=== PATIENT | male | born 1945 | race Caucasian/White ===

== ENCOUNTER 2019-11-21 10:08 | Outpatient (CLI) | payer MEDICARE, SELFPAY ==
[2019-11-21 11:13] LABS: Blood Urea Nitrogen 27 mg/dL (9-20); Calcium 9.3 mg/dL (8.4-10.2); Carbon Dioxide 30 mmol/L (22-30); Chloride 101 mmol/L (98-107); Estimated Glomerular Filt Rate 46; Glucose 109 mg/dL (75-110); Potassium 4.5 mmol/L (3.4-5.0); Sodium 141 mmol/L (137-145)
== END 2019-11-21 10:09 | disposition home or self-care (01) ==
LOC: ANHLAB 10:19
PROVIDERS: PCP Internal Medicine; Visit Provider Internal Medicine
DX: N18.3 Chronic kidney disease, stage 3 (moderate) (principal)
CPT/HCPCS: 36415; 80048

== ENCOUNTER 2020-02-24 13:15 | Outpatient (CLI) | payer MEDICARE, SELFPAY ==
[2020-02-24 14:07] LABS: Add Urine Microscopic? NO; Appearance Urine Clear (Clear); Bilirubin Urine Negative (Negative); Blood Urine Negative (Negative); Color Urine Straw (Yellow); Glucose Urine UA Negative (Negative); Ketones Urine Negative (Negative); Leukocyte Esterase Ur Negative LEU/UL (NEGATIVE); Nitrate Urine Negative (Negative); Protein Urine Negative (Negative); Specific Grav Ur 1.015 (1.001-1.035); Urobilinogen Urine Negative mg/dL (<2.0)
[2020-02-24 14:22] LABS: Alanine Aminotransferase 14 U/L (4-50); Albumin Level 4.3 g/dL (3.5-5.1); Alkaline Phosphatase 53 U/L (38-126); Aspartate Amino Transferase 27 U/L (17-59); Bilirubin,Total 0.5 mg/dL (0.2-1.3); Blood Urea Nitrogen 26 mg/dL (9-20); Carbon Dioxide 26 mmol/L (22-30); Chloride 104 mmol/L (98-107); Estimated Glomerular Filt Rate 54; Glucose 92 mg/dL (75-110); Potassium 4.3 mmol/L (3.4-5.0); Sodium 136 mmol/L (137-145)
== END 2020-02-24 13:16 | disposition home or self-care (01) ==
PROVIDERS: PCP Internal Medicine; Visit Provider Internal Medicine
DX: R74.8 Abnormal levels of other serum enzymes (principal)
CPT/HCPCS: 36415; 80053; 81003

== ENCOUNTER → 2020-12-21 10:17 | Outpatient (REF) | payer MEDICARE, SELFPAY | LOC: ANHLAB 10:17 | PROVIDERS: PCP Internal Medicine; Visit Provider Nurse Practitioner | DX: C44.629 Squamous cell carcinoma of skin of left upper limb, including shoulder (principal) | CPT/HCPCS: 88305 ==

== ENCOUNTER → 2021-02-01 09:49 | Outpatient (REF) | payer MEDICARE, SELFPAY | LOC: ANHLAB 09:49 | PROVIDERS: PCP Internal Medicine; Visit Provider Nurse Practitioner | DX: C44.629 Squamous cell carcinoma of skin of left upper limb, including shoulder (principal) | CPT/HCPCS: 88305 ==

== ENCOUNTER 2021-11-15 10:26 | Outpatient (CLI) | payer MEDICARE, SELFPAY ==
[2021-11-15 11:03] LABS: Basophils Absolute Auto 0.1 K/mm3 (0.0-0.1); Basophils Percent Auto 0.9 % (0.2-1.2); Eosinophils Absolute Auto 0.1 K/mm3 (0-0.3); Eosinophils Percent Auto 2.3 % (0-4.4); Hematocrit 41.3 % (42.0-52.0); Hemoglobin 13.7 g/dL (14.0-18.0); Immature Granulocyte Absolute 0.01 K/mm3 (0.00-0.031); Immature Granulocyte Percent A 0.2 % (0-0.5); Immature Platelet Fraction Pct 2.5 % (0.9-11.2); Lymphocytes Absolute Auto 0.83 K/mm3 (0.9-3.2); Lymphocytes Percent Auto 15.7 % (18.3-44.2); Mean Corpuscular HGB Conc 33.2 g/dl (32-36); Mean Corpuscular Hemoglobin 30.6 pg (26-34); Mean Corpuscular Volume 92.4 fl (80-100); Mean Platelet Volume 9.6 fl (7.4-10.4); Monocytes Absolute Auto 0.5 K/mm3 (0.1-0.6); Monocytes Percent Auto 9.6 % (2.6-8.5); Neutrophils Absolute Auto 3.8 K/mm3 (1.3-6.7); Neutrophils Percent Auto 71.3 % (45.5-73.1); Platelet Count Result 131 k/mm3 (150-375); Red Blood Count 4.47 M/mm3 (4.6-6.20); Red Cell Distribution Width 12.6 % (11.5-14.5); White Blood Count 5.3 K/mm3 (4.5-10.0)
[2021-11-15 11:32] LABS: Vitamin D 25 Hydroxy 60.4 ng/mL
[2021-11-15 11:45] LABS: Alanine Aminotransferase 23 U/L (4-50); Albumin Level 4.2 g/dL (3.5-5.1); Alkaline Phosphatase 55 U/L (38-126); Anion Gap 5 mmol/L (8-16); Aspartate Amino Transferase 32 U/L (17-59); Bilirubin,Total 0.7 mg/dL (0.2-1.3); Blood Urea Nitrogen 22 mg/dL (9-20); Calcium 9.1 mg/dL (8.4-10.2); Carbon Dioxide 29 mmol/L (22-30); Chloride 105 mmol/L (98-107); Cholesterol 141 mg/dL (0-200); Estimated Glomerular Filt Rate 46; Glucose 104 mg/dL (65-110); HDL Direct 54 mg/dL; Potassium 3.9 mmol/L (3.4-5.0); Sodium 139 mmol/L (137-145); Triglycerides 95 mg/dL (<150)
[2021-11-15 11:57] LABS: LDL Cholesterol Direct 67 mg/dL
[2021-11-15 12:17] LABS: Prostate Specific Antigen 2.8 ng/mL (< OR = 4.0); Thyroid Stimulating Hormone 0.896 uIU/mL (0.465-4.680)
== END 2021-11-15 10:27 | disposition home or self-care (01) ==
LOC: ANHLAB 10:28
PROVIDERS: PCP Internal Medicine; Visit Provider Internal Medicine
DX: Z12.5 Encounter for screening for malignant neoplasm of prostate (principal); E78.00 Pure hypercholesterolemia, unspecified; E55.9 Vitamin D deficiency, unspecified; R53.83 Other fatigue; G00-G99 Diseases of the nervous system
CPT/HCPCS: 36415; 80053; 80061; 82306; 82607; 82746; 84153; 84443; 85025; 85055; G0103

== ENCOUNTER 2022-04-25 09:22 | Outpatient (CLI) | payer MEDICARE, SELFPAY ==
[2022-04-25 09:50] LABS: Alanine Aminotransferase 12 U/L (6-50); Albumin Level 3.9 g/dL (3.5-5.1); Alkaline Phosphatase 70 U/L (38-126); Anion Gap 5 mmol/L (8-16); Aspartate Amino Transferase 21 U/L (17-59); Bilirubin,Total 0.6 mg/dL (0.2-1.3); Blood Urea Nitrogen 29 mg/dL (9-20); Calcium 8.6 mg/dL (8.4-10.2); Carbon Dioxide 29 mmol/L (22-30); Chloride 104 mmol/L (98-107); Estimated Glomerular Filt Rate 46; Glucose 115 mg/dL (65-110); Sodium 138 mmol/L (137-145)
== END 2022-04-25 09:23 | disposition home or self-care (01) ==
LOC: ANHLAB 09:25
PROVIDERS: PCP Internal Medicine; Visit Provider Internal Medicine
DX: N18.30 Chronic kidney disease, stage 3 unspecified (principal)
CPT/HCPCS: 36415; 80053

== ENCOUNTER 2022-06-16 09:47 | Outpatient (CLI) | payer MEDICARE, SELFPAY ==
--- NOTE | ~2022-06-16 | MR_ITS ---
EXAMINATION: MR lumbar spine wo con DATE: 06/16/2022 10:22 INDICATION: Back pain. TECHNIQUE: Magnetic resonance imaging (MRI) of the lumbar spine was performed without intravenous con trast. Sequences included sagittal T2-weighted FSE, sagittal T2-weighted FS FSE, sagittal T1-weighted FSE, and axial T2-weighted FSE. COMPARISON: None FINDINGS: There is 6 degrees levocurvature of lumbar spine. There is a chronic compression fracture o f T12 with 2/5 loss of height. There is 3 mm retrolisthesis of L1 on L2 and 3 mm anterolisthesis of L 2 on L3. There is severely decreased disc height at L1-L2, moderately decreased disc height at L2-L3, mildly decreased disc height at L3-L4, moderately decreased disc height at L4-L5, and severely decre ased disc height at L5-S1 with endplate remodeling. The distal spinal cord signal intensity is normal . The conus medullaris is at L1. The following disc levels are specifically discussed: L1-L2: The disc is bulging and has an annular fissure. There is mild bilateral facet joint osteoarthr itis. There is mild bilateral neural foraminal stenosis. There is mild central canal stenosis. L2-L3: The disc is bulging and has an annular fissure. There is severe right and moderate left facet joint osteoarthritis. There is mild bilateral neural foraminal stenosis. There is mild central canal stenosis. L3-L4: The disc is bulging and has an annular fissure. There is moderate bilateral facet joint osteoa rthritis. There is mild bilateral neural foraminal stenosis. There is mild central canal stenosis. L4-L5: The disc is bulging and has an annular fissure. There is moderate bilateral facet joint osteoa rthritis. There is moderate bilateral neural foraminal stenosis. There is mild central canal stenosis . L5-S1: The disc is bulging and has an annular fissure. There is severe bilateral facet joint osteoart hritis. There is mild right and moderate left neural foraminal stenosis. There is mild central canal stenosis. IMPRESSION: 1. Severe lumbar spondylosis. Reviewed, dictated and finalized at location A.
== END 2022-06-16 09:48 | disposition home or self-care (01) ==
LOC: ANHIMG 09:49
PROVIDERS: PCP Internal Medicine; Visit Provider Internal Medicine
DX: M54.9 Dorsalgia, unspecified (principal); M47.816 Spondylosis without myelopathy or radiculopathy, lumbar region
CPT/HCPCS: 72148

== ENCOUNTER 2022-09-04 08:30 | Outpatient (RCR) | payer MEDICARE, SELFPAY ==
--- NOTE | 2022-08-10 10:23 | OTOPEVAL1 ---
Assessment and note entered by Cassia Mehta OT Evaluation Information Assessment Status Evaluation Diagnosis R hand weakness Subjective Information Patient reports has lost strength in R hand prior to and after R TSA 3 months prior. Patient reports difficulty with opening jars, buttoning shirt, any gripping/grasping tasks. Patient reports prior to shoulder replacement not allowed to lift anything over 10lbs. Reported Pain Level Pain Score 0: Self Report Assessment OT Clinical Summary Raf is a 76 year old R hand dominant male who presents to Outpatient OT with complaints of R hand weakness. Patient reports difficulty with gripping/grasping tasks with R hand, buttoning shirt, opening jars. 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 Patient would benefit from skilled OT for instruction of HEP materials, R UE strengthening, fine motor coordination tasks in order to optimize participation with functional and daily tasks. Plan of Care Interventions Therapeutic Exercise,Therapeutic Activities OT Services Indicated Yes These treatments will address the objective and functional deficits as defined above. The patient will be advanced safely and appropriately in order for the patient to progress towards his/her prior level of function. Additional exercises will be introduced and as well as a comprehensive home exercise program upon discharge, if needed, ?to ensure carryover of functional gains achieved in the clinic. This treatment plan has been reviewed and agreement upon by the patient.
--- NOTE | 2022-09-04 09:15 | OTOPDC ---
Assessment and note entered by Cassia Mehta OTR/[facility] Evaluation Information Assessment Status Discharge Diagnosis R hand weakness Subjective Information Patient presents to OT for re-evaluation following a of lost strength in R hand prior to and after R TSA 3 months prior. Patient reports since beginning therapy has increased strength and fine motor coordination including being able to button shirt easier, gripping/grasping tasks are easier to complete. Reported Pain Level Pain Score 0: Self Report Assessment OT Clinical Summary Raf is a 76 year old R hand dominant male who presents to outpatient OT for re-evaluation following R hand weakness. Patient has attended therapy for x4 session. Patient reports R hand feels much stronger and it is easier to complete daily and functional tasks. 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 Plan is to discharge patient today from skilled OT with goals met and patient independent with all HEP materials. Patient is agreeable to plan. Plan of Care OT Services Indicated No
== END 2022-09-04 12:47 | disposition home or self-care (01) ==
LOC: ANHOT 08:30
PROVIDERS: PCP Internal Medicine; Visit Provider Nurse Practitioner Gerontology
DX: R29.898 Other symptoms and signs involving the musculoskeletal system (principal)
CPT/HCPCS: 97110; 97165

== ENCOUNTER 2022-11-28 10:40 | Outpatient (CLI) | payer MEDICARE, SELFPAY ==
[2022-11-28 11:01] LABS: Basophils Percent Auto 0.5 % (0.2-1.2); Eosinophils Absolute Auto 0.1 K/mm3 (0-0.3); Eosinophils Percent Auto 1.6 % (0-4.4); Hematocrit 44.9 % (42.0-52.0); Hemoglobin 14.7 g/dL (14.0-18.0); Immature Granulocyte Absolute 0.03 K/mm3 (0.00-0.031); Immature Granulocyte Percent A 0.4 % (0-0.5); Lymphocytes Percent Auto 11.9 % (18.3-44.2); Mean Corpuscular HGB Conc 32.7 g/dl (32-36); Mean Corpuscular Hemoglobin 29.8 pg (26-34); Mean Corpuscular Volume 90.9 fl (80-100); Mean Platelet Volume 9.1 fl (7.4-10.4); Monocytes Absolute Auto 0.7 K/mm3 (0.1-0.6); Neutrophils Absolute Auto 5.8 K/mm3 (1.3-6.7); Neutrophils Percent Auto 76.6 % (45.5-73.1); Platelet Count Result 198 k/mm3 (150-375); Red Blood Count 4.94 M/mm3 (4.6-6.20); Red Cell Distribution Width 13.1 % (11.5-14.5); White Blood Count 7.6 K/mm3 (4.5-10.0)
[2022-11-28 11:15] LABS: Alanine Aminotransferase 22 U/L (6-50); Albumin Level 4.5 g/dL (3.5-5.1); Alkaline Phosphatase 87 U/L (38-126); Anion Gap 5 mmol/L (8-16); Aspartate Amino Transferase 22 U/L (17-59); Bilirubin,Total 0.6 mg/dL (0.2-1.3); Blood Urea Nitrogen 31 mg/dL (9-20); Carbon Dioxide 32 mmol/L (22-30); Chloride 102 mmol/L (98-107); Estimated Glomerular Filt Rate 46; Glucose 107 mg/dL (65-110); Potassium 4.5 mmol/L (3.4-5.0); Sodium 139 mmol/L (137-145)
[2022-11-28 11:29] LABS: Vitamin D 25 Hydroxy 69.7 ng/mL
[2022-11-28 11:44] LABS: Prostate Specific Antigen 3.3 ng/mL (< OR = 4.0)
[2022-11-28 12:19] LABS: Folic Acid 13.2 ng/mL (2.76->20)
== END 2022-11-28 10:41 | disposition home or self-care (01) ==
LOC: ANHLAB 10:42
PROVIDERS: PCP Internal Medicine; Visit Provider Internal Medicine
DX: E55.9 Vitamin D deficiency, unspecified (principal); E78.00 Pure hypercholesterolemia, unspecified; R53.83 Other fatigue; Z12.5 Encounter for screening for malignant neoplasm of prostate
CPT/HCPCS: 36415; 80053; 82306; 82607; 82746; 84153; 84443; 85025; G0103

== ENCOUNTER 2023-05-03 08:33 | Outpatient (CLI) | payer MEDICARE, SELFPAY ==
[2023-05-03 09:06] LABS: Basophils Absolute Auto 0.1 K/mm3 (0.0-0.1); Basophils Percent Auto 0.9 % (0.2-1.2); Eosinophils Absolute Auto 0.1 K/mm3 (0-0.3); Eosinophils Percent Auto 2.6 % (0-4.4); Hematocrit 45.9 % (42.0-52.0); Hemoglobin 14.8 g/dL (14.0-18.0); Immature Granulocyte Absolute 0.01 K/mm3 (0.00-0.031); Immature Granulocyte Percent A 0.2 % (0-0.5); Immature Platelet Fraction Pct 2.1 % (0.9-11.2); Lymphocytes Absolute Auto 0.88 K/mm3 (0.9-3.2); Lymphocytes Percent Auto 16.3 % (18.3-44.2); Mean Corpuscular HGB Conc 32.2 g/dl (32-36); Mean Corpuscular Hemoglobin 29.7 pg (26-34); Mean Platelet Volume 9.7 fl (7.4-10.4); Monocytes Absolute Auto 0.4 K/mm3 (0.1-0.6); Neutrophils Absolute Auto 3.9 K/mm3 (1.3-6.7); Platelet Count Result 152 k/mm3 (150-375); Red Blood Count 4.99 M/mm3 (4.6-6.20); Red Cell Distribution Width 13.2 % (11.5-14.5); White Blood Count 5.4 K/mm3 (4.5-10.0)
[2023-05-03 09:53] LABS: Vitamin D 25 Hydroxy 82.5 ng/mL
[2023-05-03 16:29] LABS: Alanine Aminotransferase 25 U/L (6-50); Albumin Level 4.3 g/dL (3.5-5.1); Alkaline Phosphatase 52 U/L (38-126); Anion Gap 9 mmol/L (8-16); Aspartate Amino Transferase 38 U/L (17-59); Bilirubin,Total 0.7 mg/dL (0.2-1.3); Blood Urea Nitrogen 31 mg/dL (9-20); Calcium 9.2 mg/dL (8.4-10.2); Carbon Dioxide 29 mmol/L (22-30); Chloride 102 mmol/L (98-107); Cholesterol 167 mg/dL (0-200); Estimated Glomerular Filt Rate 42; Glucose 114 mg/dL (65-110); HDL Direct 61 mg/dL; Potassium 4.6 mmol/L (3.4-5.0); Sodium 140 mmol/L (137-145); Triglycerides 95 mg/dL (<150)
[2023-05-03 16:40] LABS: LDL Cholesterol Direct 77 mg/dL
[2023-05-08 09:40] LABS: Metanephrine, Total Urine 393 mcg/g cr (149-603); Metanephrine, Urine 134 mcg/g cr (21-153); Normetanephrine, Urine 259 mcg/g cr (108-524)
== END 2023-05-03 08:34 | disposition home or self-care (01) ==
PROVIDERS: PCP Internal Medicine; Referring Provider Podiatrist Foot & Ankle Surgery; Visit Provider Internal Medicine
DX: E55.9 Vitamin D deficiency, unspecified (principal); E78.5 Hyperlipidemia, unspecified; I10 Essential (primary) hypertension; R53.83 Other fatigue
CPT/HCPCS: 36415; 80053; 80061; 82306; 82570; 83835; 84443; 85025; 85055

== ENCOUNTER 2023-10-10 10:22 | Outpatient (CLI) | payer MEDICARE, SELFPAY ==
[2023-10-10 11:15] LABS: Alanine Aminotransferase 16 U/L (6-50); Aspartate Amino Transferase 30 U/L (17-59)
== END 2023-10-10 10:23 | disposition home or self-care (01) ==
LOC: ANHLAB 10:25
PROVIDERS: PCP Internal Medicine; Visit Provider Podiatrist Foot & Ankle Surgery
DX: B35.1 Tinea unguium (principal)
CPT/HCPCS: 36415; 84450; 84460

== ENCOUNTER 2023-12-03 08:43 | Outpatient (CLI) | payer MEDICARE, SELFPAY ==
[2023-12-03 09:11] LABS: Basophils Absolute Auto 0.1 K/mm3 (0.0-0.1); Basophils Percent Auto 0.8 % (0.2-1.2); Eosinophils Absolute Auto 0.2 K/mm3 (0-0.3); Eosinophils Percent Auto 2.5 % (0-4.4); Hematocrit 48.4 % (42.0-52.0); Hemoglobin 15.6 g/dL (14.0-18.0); Immature Granulocyte Absolute 0.02 K/mm3 (0.00-0.031); Immature Granulocyte Percent A 0.3 % (0-0.5); Lymphocytes Absolute Auto 0.82 K/mm3 (0.9-3.2); Lymphocytes Percent Auto 13.8 % (18.3-44.2); Mean Corpuscular HGB Conc 32.2 g/dl (32-36); Mean Corpuscular Hemoglobin 29.5 pg (26-34); Mean Corpuscular Volume 91.5 fl (80-100); Mean Platelet Volume 9.3 fl (7.4-10.4); Monocytes Absolute Auto 0.4 K/mm3 (0.1-0.6); Monocytes Percent Auto 7.4 % (2.6-8.5); Neutrophils Absolute Auto 4.5 K/mm3 (1.3-6.7); Neutrophils Percent Auto 75.2 % (45.5-73.1); Platelet Count Result 148 k/mm3 (150-375); Red Blood Count 5.29 M/mm3 (4.6-6.20); Red Cell Distribution Width 13.2 % (11.5-14.5)
[2023-12-03 09:23] LABS: Alanine Aminotransferase 14 U/L (6-50); Albumin Level 4.5 g/dL (3.5-5.1); Alkaline Phosphatase 58 U/L (38-126); Anion Gap 5 mmol/L (8-16); Aspartate Amino Transferase 25 U/L (17-59); Bilirubin,Total 0.7 mg/dL (0.2-1.3); Blood Urea Nitrogen 32 mg/dL (9-20); Calcium 9.4 mg/dL (8.4-10.2); Carbon Dioxide 33 mmol/L (22-30); Chloride 102 mmol/L (98-107); Cholesterol 152 mg/dL (0-200); Estimated Glomerular Filt Rate 33; Glucose 116 mg/dL (65-110); HDL Direct 62 mg/dL; Potassium 4.8 mmol/L (3.4-5.0); Sodium 140 mmol/L (137-145); Triglycerides 82 mg/dL (<150)
[2023-12-03 09:35] LABS: LDL Cholesterol Direct 76 mg/dL
[2023-12-03 09:52] LABS: Prostate Specific Antigen 3.1 ng/mL (< OR = 4.0)
== END 2023-12-03 08:44 | disposition home or self-care (01) ==
LOC: ANHLAB 08:48
PROVIDERS: PCP Internal Medicine; Visit Provider Internal Medicine
DX: Z12.5 Encounter for screening for malignant neoplasm of prostate (principal); I12.9 Hypertensive chronic kidney disease with stage 1 through stage 4 chronic kidney disease, or unspecified chronic kidney disease; N18.30 Chronic kidney disease, stage 3 unspecified; E78.5 Hyperlipidemia, unspecified; R73.9 Hyperglycemia, unspecified; E55.9 Vitamin D deficiency, unspecified
CPT/HCPCS: 36415; 80053; 80061; 83036; 84153; 84443; 85025; G0103

== ENCOUNTER 2024-04-08 09:38 | Inpatient (IN) | payer MEDICARE, SELFPAY ==
[2024-04-08] VITALS (39 sets, daily range): BP systolic 84–159; BP diastolic 57–133; PULSE 59–79; RESP 11–34; TEMP 36.2–36.8; O2SAT 97–100; BMI 19.3
--- NOTE | ~2024-04-08 | CT_ITS ---
EXAMINATION: CT abdomen pelvis wo con DATE: 04/08/2024 11:23 INDICATION: Abdominal pain. Diarrhea. Acute kidney injury. TECHNIQUE: Computed tomography (CT) of the abdomen and pelvis was performed without intravenous contr ast. Automated exposure control and iterative reconstruction technique were employed. The dose-length product was 256.13 mGy-cm. COMPARISON: CT abdomen 03/25/2018 FINDINGS: The visualized portions of the lung bases demonstrate mild atelectasis. No pleural effusion . The heart size is normal. There are coronary artery calcifications. No pericardial effusion. There are likely changes of fundoplication of the stomach. There is a moderate-sized sliding hiatal hernia. The liver, gallbladder, spleen, pancreas, adrenal glands, and right kidney are normal. There are cys ts in left kidney measuring up to 14 mm. There is an umbilical hernia containing fat and trace ascite s. There is a left inguinal hernia containing fat. There is diverticulosis of the colon without evide nce of diverticulitis. The appendix is not visualized. There is calcified atherosclerosis of the aort a and many of the other arteries. There are no pathologically enlarged lymph nodes. There is trace pe lvic ascites. There are two small supraumbilical ventral hernias containing fat. There is chronic ant erior wedging of T11-L1 vertebral bodies. There is severe lumbar spondylosis. IMPRESSION: 1. Umbilical hernia, supraumbilical ventral hernias, and left inguinal hernia containing fat. 2. Fundoplication of the stomach with the wrap above the diaphragm. Reviewed, dictated and finalized at location A. IMPRESSION: 1. Umbilical hernia, supraumbilical ventral hernias, and left inguinal hernia c ontaining fat. 2. Fundoplication of the stomach with the wrap above the diaphragm.
--- NOTE | ~2024-04-08 | US_ITS ---
US renal BI Ordering provider: Tanisha Coffman History: . Acute kidney injury . Comparison: None. Technique: Ultrasound bilateral kidneys. Findings: RIGHT KIDNEY: Measures 9.9x 4.8x 4.6 cm in length which is normal in size. No renal cysts. No renal m ass or visualized echogenic stones. Otherwise, normal echotexture and contour. No hydronephrosis. Nor mal renal cortical thickness. LEFT KIDNEY: Measures 9.8x 5.1x 4.6 cm in length which is normal in size. No renal cysts. No renal ma ss or visualized echogenic stones. Otherwise, normal echotexture and contour. Mild dilatation of the pelvis. Normal renal cortical thickness. BLADDER: 63 mL.. Ureteral jets were not seen bilaterally. IMPRESSION: Mild dilatation of the left renal pelvis. Otherwise, Normal study. Reviewed, dictated and finalized at location A.
[2024-04-08 10:20] LABS: Basophils Absolute Auto 0.1 K/mm3 (0.0-0.1); Basophils Percent Auto 0.4 % (0.2-1.2); Eosinophils Absolute Auto 0.1 K/mm3 (0-0.3); Eosinophils Percent Auto 0.6 % (0-4.4); Hematocrit 50.7 % (42.0-52.0); Hemoglobin 16.9 g/dL (14.0-18.0); Immature Granulocyte Absolute 0.06 K/mm3 (0.00-0.031); Immature Granulocyte Percent A 0.4 % (0-0.5); Lymphocytes Absolute Auto 0.71 K/mm3 (0.9-3.2); Mean Corpuscular HGB Conc 33.3 g/dl (32-36); Mean Corpuscular Hemoglobin 30.1 pg (26-34); Mean Corpuscular Volume 90.2 fl (80-100); Mean Platelet Volume 10.2 fl (7.4-10.4); Monocytes Absolute Auto 1.1 K/mm3 (0.1-0.6); Monocytes Percent Auto 7.5 % (2.6-8.5); Neutrophils Absolute Auto 12.2 K/mm3 (1.3-6.7); Neutrophils Percent Auto 86.1 % (45.5-73.1); Platelet Count Result 228 k/mm3 (150-375); Red Blood Count 5.62 M/mm3 (4.6-6.20); Red Cell Distribution Width 13.3 % (11.5-14.5); White Blood Count 14.2 K/mm3 (4.5-10.0)
[2024-04-08 10:32] LABS: Alanine Aminotransferase 22 U/L (6-50); Albumin Level 5.5 g/dL (3.5-5.1); Alkaline Phosphatase 66 U/L (38-126); Anion Gap 17 mmol/L (4-12); Aspartate Amino Transferase 25 U/L (17-59); Bilirubin,Total 0.8 mg/dL (0.2-1.3); Blood Urea Nitrogen 60 mg/dL (9-20); Calcium 10.1 mg/dL (8.4-10.2); Carbon Dioxide 14 mmol/L (22-30); Chloride 108 mmol/L (98-107); Estimated CRCL calculation 16 ml/min; Estimated Glomerular Filt Rate 18; Glucose 170 mg/dL (65-110); Lipase 132 U/L (23-300); Potassium 4.5 mmol/L (3.4-5.0); Sodium 139 mmol/L (137-145)
[2024-04-08] MEDS: ONDANSETRON INJ 4 MG/2 ML VIAL IV PUSH (11:14)
[2024-04-08] MEDS: SODIUM CHLORIDE 0.9% IV 1,000 ML 999 ML IV CONT (11:14)
--- NOTE | 2024-04-08 11:18 | PC.NURSE ---
Report given to Gypsy DYE, all questions answered
--- NOTE | 2024-04-08 11:32 | ED.NAVMDI ---
HPI - Nausea/Vomiting/Diarrhea General Chief complaint: Nausea/Vomiting/Diarrhea <ANA ROSA Kay Last Filed: 04/08/24 16:30> Stated complaint: diarrhea <ANA ROSA Kay Last Filed: 04/08/24 16:30> Time Seen by Provider: 04/08/24 10:15 <ANA ROSA Kay Last Filed: 04/08/24 16:30> Source: patient <ANA ROSA Kay Last Filed: 04/08/24 16:30> Mode of arrival: ambulatory <ANA ROSA Kay Last Filed: 04/08/24 16:30> Limitations: no limitations <ANA ROSA Kay Last Filed: 04/08/24 16:30> History of Present Illness HPI Narrative: This is a 78-year-old male that presents to the emergency department for abdominal pain and diarrhea. Ongoing since yesterday. Reports feeling generally weak. Also had some nausea vomiting. Reports the stool is watery. He has not been on any antibiotics recently. Denies fevers, hematochezia, or melena. <ANA ROSA Kay Last Filed: 04/08/24 16:30> Related Data Home medications: Home Medications Medication Instructions Recorded Confirmed aspirin 81 mg tablet,delayed 81 mg PO DAILY 11/21/19 12/05/23 release (Adult Low Dose Aspirin) simvastatin 20 mg tablet 20 mg PO DAILY 11/21/19 12/05/23 terbinafine HCl 250 mg tablet 250 mg PO DAILY 05/30/23 12/05/23 <ANA ROSA Kay Last Filed: 04/08/24 16:30> Allergies/Adverse reactions: Allergies Allergy/AdvReac Type Severity Reaction Status Date / Time No Known Allergies Allergy Verified 04/08/24 10:08 <ANA ROSA Kay Last Filed: 04/08/24 16:30> Review of Systems Review of Systems: CONSTITUTIONAL: Denies fever GASTROINTESTINAL: Reports abdominal pain, nausea, vomiting, and diarrhea. GENITOURINARY: Denies dysuria <ANA ROSA Kay Last Filed: 04/08/24 16:30> All systems reviewed & are unremarkable except as noted in HPI and below <Odalis Lemus PA-C - Last Filed: 04/08/24 16:30> [facility] Past Medical History Medical History: Medical History Benign prostatic hyperplasia Chronic kidney disease, stage 3 Coronary artery disease Essential hypertension Gastroesophageal reflux disease Hyperlipidemia Prediabetes <Odalis Lemus PA-C - Last Filed: 04/08/24 16:30> Surgical History Surgical History: Surgical History History of cardiac catheterization History of coronary artery stent placement History of hernia repair History of Bettye fundoplication History of reverse total replacement of right shoulder joint <Odalis Lemus PA-C - Last Filed: 04/08/24 16:30> Family History Family History: Family History Mother Family history of malignant neoplasm of breast in first degree relative, Onset Age: 91 Patient's mother is Father Patient's father is Other Family history of Parkinson's disease Family history of malignant neoplasm <Odalis Lemus PA-C - Last Filed: 04/08/24 16:30> Social History Social History: Social History (Updated 04/08/24 @ 17:33 by Tanisha Coffman PA-C) Social History: Surrogate medical decision maker: Brittani Sparrow, spouse. Code status: Full code. Smoking status: Former smoker Second hand tobacco smoke exposure: No Alcohol intake: current Drinks per week: 1 Substance use: never Do You Feel Safe in your Home?: Yes Lack of Transportation: No Lack of Food: Never True Current Housing: Decline to Answer Concerned About Future Housing: Decline to Answer Difficulty Paying Gas/Electric Bills: Decline to Answer Difficulty Paying for Meds: Decline to Answer Currently Unemployed: Decline to Answer Education: Decline to Answer Difficulty w/ Childcare or Family Care: Decline to Answer Spiritual care concerns: No
[2024-04-08 14:08] LABS: Appearance Urine Cloudy (Clear); Bacteria Urine None Seen /hpf; Bilirubin Urine Negative (Negative); Blood Urine Negative (Negative); Calcium Oxalate Crystals Urine Present /hpf; Color Urine Dark Yellow (Yellow); Glucose Urine UA Negative (Negative); Ketones Urine Trace mg/dL (Negative); Leukocyte Esterase Ur Negative LEU/UL (Negative); Mucus Urine Present /lpf; Need Manual Microscopic Reviewed; Nitrate Urine Negative (Negative); Non Pathogenic Casts >20; Protein Urine 2+ mg/dL (Negative); RBC Urine 0-2 /hpf (0-2); Specific Grav Ur 1.022 (1.001-1.035); Squamous Epithelial Cell Urine None Seen /hpf (Few); WBC Urine 0-5 /hpf (0-3)
[2024-04-08 14:10] LABS: Add Urine Microscopic? YES
[2024-04-08] MEDS: SODIUM CHLORIDE 0.9% IV 500 ML 999 ML IV CONT (14:38)
--- NOTE | 2024-04-08 15:52 | PM.IMHP ---
H&P: HPI History of Present Illness Date/Time: 04/08/24 16:30 Chief Complaint: Nausea, vomiting, diarrhea. Narrative: This is a very pleasant 78-year-old male with history of Bettye fundoplication, multiple ventral hernias, gastroesophageal reflux disease, hypertension, hyperlipidemia, benign prostatic hyperplasia, chronic kidney disease stage 3, and prediabetes who presented to the emergency department via private vehicle for evaluation of weakness. Yesterday morning at about 08:00 he developed a pressure-like discomfort in the lower abdomen followed by watery diarrhea admixed with mucus. The pressure-like discomfort does improve after having a bowel movement. He has had too numerous to count episodes of diarrhea and reports being up and down all night with the same. At about 03:30 he started to feel extremely nauseated and he reports having 1 episode of nonbloody and nonbilious emesis. He continues to have the diarrhea however and is feeling progressively weak. He denies fever, chills, sweats, chest pain, shortness of breath, epigastric pain, current abdominal pain, hematemesis, melena, and hematochezia. He also denies sick contacts, recent travel, and recent antibiotic use In the ED: Blood pressure was 84/59 on arrival. He has been afebrile. Labs are significant for a WBC count of 14.2, hemoglobin 16.9, sodium 139, potassium 4.5, chloride 108, carbon dioxide 14, anion gap 17, BUN 60, creatinine 3.40, glucose 170, total protein 9.0, albumin 5.5. CT of the abdomen and pelvis showed umbilical, supraumbilical, and left inguinal hernias containing fat and fundal location of the stomach with wrap above the diaphragm. He received a 1500 mL normal saline bolus and is being admitted in this setting for further treatment. With further questioning, he admits that he has no knowledge of having chronic kidney disease. He has noticed a decrease in urine output today which he attributes to dehydration. He has been on lisinopril for quite some time and more recently was started on amlodipine due to persistently elevated blood pressures. Review of Systems Review of Systems: 12 systems were reviewed and are negative except for as per HPI. [facility] Past Medical History Medical History Benign prostatic hyperplasia Chronic kidney disease, stage 3 Coronary artery disease Essential hypertension Gastroesophageal reflux disease Hyperlipidemia Prediabetes Surgical History Surgical History History of cardiac catheterization History of coronary artery stent placement History of hernia repair History of Bettye fundoplication History of reverse total replacement of right shoulder joint Family History Family History Mother Family history of malignant neoplasm of breast in first degree relative, Onset Age: 91 Patient's mother is Father Patient's father is Other Family history of Parkinson's disease Family history of malignant neoplasm Social History Social History (Updated 04/08/24 @ 17:33 by Tanisha Coffman PA-C) Social History: Surrogate medical decision maker: Brittani Sparrow, spouse. Code status: Full code. Smoking status: Former smoker Second hand tobacco smoke exposure: No Alcohol intake: current Drinks per week: 1 Substance use: never Do You Feel Safe in your Home?: Yes Lack of Transportation: No Lack of Food: Never True Current Housing: Decline to Answer Concerned About Future Housing: Decline to Answer Difficulty Paying Gas/Electric Bills: Decline to Answer Difficulty Paying for Meds: Decline to Answer Currently Unemployed: Decline to Answer Education: Decline to Answer Difficulty w/ Childcare or Family Care: Decline to Answer Spiritual care concerns: No Meds Home Medications and Allergies
--- NOTE | 2024-04-08 16:03 | ADMGEN ---
This patient, Raf Sparrow, was admitted to 2 Medical Room 256-. Patient/family oriented to hospital policies and general routines including ID bracelet, bed and alarms, visiting hours, pain management, procedures, bathroom and other care routines, personal items, smoking policy, room service/diet, and visiting hours. Information on how to activate the Rapid Response Team has been discussed. Patient/Family are encouraged to report perceived risks to care and to ask questions if they do not understand what they are told or what they should do.
[2024-04-08 16:24] LABS: Fractional Inspired Oxygen 21 %; HCO3 VBG 19.1 mEq/l (24.0-30.0); PCO2 VBG 46.5 mmHg (42.0-48.0)
[2024-04-08 16:26] LABS: PO2 VBG < 27.0 mmHg (35.0-45.0); pH VBG 7.231 (7.300-7.400)
[2024-04-08 16:38] LABS: Anion Gap 13 mmol/L (4-12); Blood Urea Nitrogen 62 mg/dL (9-20); Calcium 9.1 mg/dL (8.4-10.2); Carbon Dioxide 15 mmol/L (22-30); Chloride 113 mmol/L (98-107); Estimated CRCL calculation 16 ml/min; Estimated Glomerular Filt Rate 20; Glucose 117 mg/dL (65-110); Potassium 5.1 mmol/L (3.4-5.0); Sodium 141 mmol/L (137-145)
[2024-04-08] MEDS: LACTATED RINGERS 1,000 ML 100 ML IV CONT (18:21)
--- NOTE | 2024-04-08 18:42 | PC.NURSE ---
Pt a poor historian. Pt unsure of home medications. This nurse pulled as many as possible from recent pharmacy information. Pts will be here with a list soon.
[2024-04-08 23:39] LABS: Anion Gap 10 mmol/L (4-12); Blood Urea Nitrogen 59 mg/dL (9-20); Carbon Dioxide 19 mmol/L (22-30); Chloride 111 mmol/L (98-107); Estimated CRCL calculation 17 ml/min; Estimated Glomerular Filt Rate 21; Glucose 159 mg/dL (65-110); Potassium 3.9 mmol/L (3.4-5.0); Sodium 140 mmol/L (137-145)
[2024-04-09] VITALS (13 sets, daily range): BP systolic 127–155; BP diastolic 65–84; PULSE 57–77; RESP 16–20; TEMP 36.5–37.2; O2SAT 97–100
[2024-04-09] MEDS: LACTATED RINGERS 1,000 ML 100 ML IV CONT ×2 (04:21→14:24)
[2024-04-09 04:46] LABS: Hematocrit 42.5 % (42.0-52.0); Immature Platelet Fraction Pct 2.1 % (0.9-11.2); Mean Corpuscular HGB Conc 32.9 g/dl (32-36); Mean Corpuscular Hemoglobin 30.5 pg (26-34); Mean Corpuscular Volume 92.6 fl (80-100); Mean Platelet Volume 9.7 fl (7.4-10.4); Platelet Count Result 132 k/mm3 (150-375); Red Blood Count 4.59 M/mm3 (4.6-6.20); Red Cell Distribution Width 13.4 % (11.5-14.5); White Blood Count 7.1 K/mm3 (4.5-10.0)
[2024-04-09 04:57] LABS: Anion Gap 10 mmol/L (4-12); Blood Urea Nitrogen 56 mg/dL (9-20); CRP 0.7 mg/dL (<1.0); Calcium 8.8 mg/dL (8.4-10.2); Carbon Dioxide 19 mmol/L (22-30); Chloride 110 mmol/L (98-107); Creatine Kinase 196 U/L (55-170); Estimated CRCL calculation 19 ml/min; Estimated Glomerular Filt Rate 24; Glucose 115 mg/dL (65-110); Magnesium 2.2 mg/dL (1.6-2.3); Phosphorus 4.1 mg/dL (2.5-4.5); Potassium 3.9 mmol/L (3.4-5.0); Sodium 139 mmol/L (137-145)
--- NOTE | 2024-04-09 07:42 | P.PNIM_ITS ---
Progress Note: A&P Assessment and Plan (1) Acute on chronic kidney failure: Code(s): N17.9 - Acute kidney failure, unspecified; N18.9 - Chronic kidney disease, unspecified Status: Acute Assessment and Plan: likely secondary to dehydration from nausea, vomiting, diarrhea * Initial blood pressure on admission 84/59. Blood pressures have improved with IV fluids. DIAMOND is also responding with IV fluids. * CKD history-Cr was running 1.5 last year in November 2022, then on 12/03/2023 Cr 2.0. * Cr today (04/09) 2.60, BUN 56 * Received 1.5 L of NS in the ED, Continue LR at 100 ml per hour * CO2 19 on labs, sodium bicarb tablet 325 mg added b.i.d. * renal ultrasound shows mild dilatation of the left renal pelvis, otherwise normal * Holding nephrotoxic mediations--lisinopril on hold * Renally dose medications * Nephrology consult is appreciated (2) Gastroenteritis: Code(s): K52.9 - Noninfective gastroenteritis and colitis, unspecified Status: Acute Assessment and Plan: Reports of nausea, vomiting, and diarrhea * initial white count was 14.0 but has resolved with IVF * CT abdomen and pelvis Shows umbilical hernia, supraumbilical ventral hernias, and left inguinal hernia with fat. Fundoplication present. * C diff and stool sample ordered but not sent as he has not had diarrhea since admission * conservative treatment (3) Dehydration: Code(s): E86.0 - Dehydration Status: Acute Assessment and Plan: secondary to 2 (4) Essential hypertension: Code(s): I10 - Essential (primary) hypertension Status: Acute Assessment and Plan: patient is normally on amlodipine, metoprolol, and lisinopril * hypotensive on admission 80s over 40s * blood pressures have return to baseline * resume amlodipine and metoprolol today * continue to hold lisinopril for DIAMOND (5) Prediabetes: Code(s): R73.03 - Prediabetes Status: Acute Assessment and Plan: last hemoglobin A1c in November of this year was 6% * fasting glucose on BMP was 115 * monitor glucose on labs (6) Gastroesophageal reflux disease: Code(s): K21.9 - Gastro-esophageal reflux disease without esophagitis Status: Acute Assessment and Plan: status post Bettye, on Protonix * resume home medication * stable (7) Benign prostatic hyperplasia: Code(s): N40.0 - Benign prostatic hyperplasia without lower urinary tract symptoms Status: Acute Assessment and Plan: on Flomax, resume medication Plan Feeding:heart healthy diet Analgesia:Tylenol Thromboembolic prophylaxis: SCDs Ulcer prophylaxis: PPI Glycemic control: monitor on BMP Bowel regimen: MiraLax p.r.n. Lines: PIV Antibiotics: not applicable Disposition: PT OT consult for weakness, anticipate patient returning home Advance Care Plan I have confirmed that the patient's Advanced Care Plan is present, code status is documented, or surrogate decision maker is listed in patient medical record.: Yes Medication Reconciliation I have utilized all available resources to obtain, update and review the patients current medications (includes all prescriptions, OTC, herbals, cannabis, and nutritional supplements).: Yes Subjective Date/time seen: 04/09/24 07:42 Interval history: This is a very pleasant 78-year-old male with history of Bettye fundoplication, multiple ventral hernias, gastroesophageal reflux disease, hypertension, hyperlipidemia, benign prostati
--- NOTE | 2024-04-09 07:42 | PM.IMPN ---
Progress Note: A&P Assessment and Plan (1) Acute on chronic kidney failure: Code(s): N17.9 - Acute kidney failure, unspecified; N18.9 - Chronic kidney disease, unspecified Status: Acute Assessment and Plan: likely secondary to dehydration from nausea, vomiting, diarrhea Initial blood pressure on admission 84/59. Blood pressures have improved with IV fluids. DIAMOND is also responding with IV fluids. CKD history-Cr was running 1.5 last year in November 2022, then on 12/03/2023 Cr 2.0. Cr today (04/09) 2.60, BUN 56 Received 1.5 L of NS in the ED, Continue LR at 100 ml per hour CO2 19 on labs, sodium bicarb tablet 325 mg added b.i.d. renal ultrasound shows mild dilatation of the left renal pelvis, otherwise normal Holding nephrotoxic mediations--lisinopril on hold Renally dose medications Nephrology consult is appreciated (2) Gastroenteritis: Code(s): K52.9 - Noninfective gastroenteritis and colitis, unspecified Status: Acute Assessment and Plan: Reports of nausea, vomiting, and diarrhea initial white count was 14.0 but has resolved with IVF CT abdomen and pelvis Shows umbilical hernia, supraumbilical ventral hernias, and left inguinal hernia with fat. Fundoplication present. C diff and stool sample ordered but not sent as he has not had diarrhea since admission conservative treatment (3) Dehydration: Code(s): E86.0 - Dehydration Status: Acute Assessment and Plan: secondary to 2 (4) Essential hypertension: Code(s): I10 - Essential (primary) hypertension Status: Acute Assessment and Plan: patient is normally on amlodipine, metoprolol, and lisinopril hypotensive on admission 80s over 40s blood pressures have return to baseline resume amlodipine and metoprolol today continue to hold lisinopril for DIAMOND (5) Prediabetes: Code(s): R73.03 - Prediabetes Status: Acute Assessment and Plan: last hemoglobin A1c in November of this year was 6% fasting glucose on BMP was 115 monitor glucose on labs (6) Gastroesophageal reflux disease: Code(s): K21.9 - Gastro-esophageal reflux disease without esophagitis Status: Acute Assessment and Plan: status post Bettye, on Protonix resume home medication stable (7) Benign prostatic hyperplasia: Code(s): N40.0 - Benign prostatic hyperplasia without lower urinary tract symptoms Status: Acute Assessment and Plan: on Flomax, resume medication Plan Feeding:heart healthy diet Analgesia:Tylenol Thromboembolic prophylaxis: SCDs Ulcer prophylaxis: PPI Glycemic control: monitor on BMP Bowel regimen: MiraLax p.r.n. Lines: PIV Antibiotics: not applicable Disposition: PT OT consult for weakness, anticipate patient returning home Advance Care Plan I have confirmed that the patient's Advanced Care Plan is present, code status is documented, or surrogate decision maker is listed in patient medical record.: Yes Medication Reconciliation I have utilized all available resources to obtain, update and review the patients current medications (includes all prescriptions, OTC, herbals, cannabis, and nutritional supplements).: Yes Subjective Date/time seen: 04/09/24 07:42 Interval history: This is a very pleasant 78-year-old male with history of Bettye fundoplication, multiple ventral hernias, gastroesophageal reflux disease, hypertension, hyperlipidemia, benign prostatic hyperplasia, chronic kidney disease stage 3, and prediabetes who presented to the emergency department via private vehicle for evaluation of weakness. 04/09: Patient is seen ambulating in room. He states he is feeling much better than when he 1st presented. He denies dizziness with ambulation or position changes. Orthostatic vitals are completed this morning and are negative. He also states he has not had any diarrhea since admission. He is t
[2024-04-09] MEDS: SIMVASTATIN 20 MG TABLET PO (08:07)
[2024-04-09] MEDS: PANTOPRAZOLE 40 MG TABLET PO (08:07)
[2024-04-09] MEDS: ASPIRIN 81 MG ENTERIC TABLET PO (08:07)
[2024-04-09] MEDS: SERTRALINE HCL 25 MG TABLET PO (08:07)
[2024-04-09] MEDS: METOPROLOL TARTRATE 50 MG TAB PO ×2 (08:08→20:29)
[2024-04-09] MEDS: amLODIPine BESYLATE 2.5 MG TABLET PO (08:08)
[2024-04-09] MEDS: TERBINAFINE HCL 250 MG TABLET PO (08:13)
[2024-04-09] MEDS: SODIUM BICARBONATE TAB 325 MG TABLET PO ×2 (08:13→16:45)
--- NOTE | 2024-04-09 13:42 | PM.CNNEP ---
Assessment and Plan Assessment and plan (1) Acute kidney injury: Code(s): N17.9 - Acute kidney failure, unspecified Status: Acute Assessment and Plan: due to several issues: prerenal factors/volume depletion hypotension continued use of anti-HTN medications prior to admission improvement in renal function/creatinine with IVFs imaging without obstruction although renal ultrasound with mild dilatation of the left renal pelvis continue current therapy follow repeat labs and UOP (2) Stage 3b chronic kidney disease: Code(s): N18.32 - Chronic kidney disease, stage 3b Status: Chronic Assessment and Plan: baseline creatinine seems to run ~ 1.5 - 2.0mg/dl presumably secondary to hypertension and vascular disease (CAD + hyperlipidemia) and age-related change (3) Gastroenteritis: Code(s): K52.9 - Noninfective gastroenteritis and colitis, unspecified Status: Acute Assessment and Plan: based on admission symptoms continue supportive therapy (4) Essential hypertension: Code(s): I10 - Essential (primary) hypertension Status: Chronic Assessment and Plan: hypotensive on presentation BP doing better at this time slowly re-introduce BP medications as tolerated Would not be opposed to discharge from renal perspective tomorrow if kidney function/creatinine continues to improve. I will continue to follow the patient with you while remains hospitalized and make further recommendations as deemed necessary. Thank you for allowing me to participate in the care of this patient. History of Present Illness Reason for Consult Consult date: 04/09/24 Reason for consult: acute renal failure (on chronic kidney disease) Chief Complaint Chief complaint: Dehydration History of Present Illness Narrative: The patient is a 78-year-old male with a past medical history as outlined below who presented to [facility] Emergency room for further evaluation of generalized weakness. The patient states that on the day before admission, he developed watery diarrhea mixed with mucus that seemed to start earlier in the morning in association with lower abdominal discomfort. Following the bowel movement, the abdominal discomfort seemed to luis but then over the course of than last 24 hr, he has had numerous bouts of diarrhea. Due to the significant diarrhea in general, he has not been able to sleep well as he feels he has always using the bathroom instead of sleeping. Earlier on the morning of admission, he felt extremely nauseated and reports having a bout of emesis as well. He continued to have diarrhea and as this progressed he progressively felt like he was getting weaker and weaker complicated by the fact he was unable to eat or drink due to his symptoms. He gave no history of fevers, chills, diaphoresis, chest pain, shortness of breath, hematemesis, melena, hematochezia or any recent antibiotic use. Due to these constellation of symptoms in the last 24-48 hours, he presented to the emergency room for further assessment. Workup and evaluation emergency room demonstrated the patient being afebrile but hypotensive on presentation with a systolic BP in the 80s. Routine blood test demonstrated a mildly elevated white blood count of 14.2, concentrated hemoglobin of 16.9, normal electrolytes, metabolic acidosis with a carbon dioxide of 14, and evidence of acute kidney injury on top of his baseline kidney disease with a BUN of 60 and a creatinine of 3.40 mg/dL. Given his GI symptoms, a CT scan of the abdomen pelvis was done which showed a umbilical, supraumbilical, and a left inguinal hernia containing fat and fundoplication of the stomach with wrap around the diaphragm but no other intra-abdominal pathology. Given his hypotension and the suspicion of volume depletion given his above history, he received a normal saline IV bolus with subsequent improvement in his bl
[2024-04-09] MEDS: TAMSULOSIN HCL 0.4 MG CAPSULE PO (20:29)
[2024-04-10] MEDS: LACTATED RINGERS 1,000 ML 100 ML IV CONT (00:30)
[2024-04-10 05:17] LABS: Alanine Aminotransferase 33 U/L (6-50); Albumin Level 3.5 g/dL (3.5-5.1); Alkaline Phosphatase 43 U/L (38-126); Anion Gap 7 mmol/L (4-12); Aspartate Amino Transferase 31 U/L (17-59); Bilirubin,Total 0.6 mg/dL (0.2-1.3); Blood Urea Nitrogen 44 mg/dL (9-20); Calcium 8.5 mg/dL (8.4-10.2); Carbon Dioxide 20 mmol/L (22-30); Chloride 109 mmol/L (98-107); Estimated CRCL calculation 27 ml/min; Estimated Glomerular Filt Rate 37; Glucose 95 mg/dL (65-110); Magnesium 2.1 mg/dL (1.6-2.3); Potassium 3.8 mmol/L (3.4-5.0); Sodium 136 mmol/L (137-145)
[2024-04-10 06:00] VITALS: BP 178/77; PULSE 54; RESP 18; TEMP 36.3; O2SAT 99
[2024-04-10 08:20] VITALS: BP 179/88; PULSE 60
[2024-04-10] MEDS: PANTOPRAZOLE 40 MG TABLET PO (08:21)
[2024-04-10] MEDS: SERTRALINE HCL 25 MG TABLET PO (08:21)
[2024-04-10] MEDS: lisinopriL 20 MG TABLET 40 MG PO (08:21)
[2024-04-10 08:22] VITALS: PULSE 60
[2024-04-10] MEDS: METOPROLOL TARTRATE 50 MG TAB PO (08:22)
[2024-04-10] MEDS: TERBINAFINE HCL 250 MG TABLET PO (08:22)
[2024-04-10] MEDS: SODIUM BICARBONATE TAB 325 MG TABLET PO (08:22)
[2024-04-10] MEDS: SIMVASTATIN 20 MG TABLET PO (08:23)
[2024-04-10] MEDS: amLODIPine BESYLATE 2.5 MG TABLET PO (08:23)
[2024-04-10] MEDS: ASPIRIN 81 MG ENTERIC TABLET PO (08:23)
--- NOTE | 2024-04-11 14:58 | P.DS_ITS ---
DS: Admitting Diagnosis Discharge Date 04/10/24 Admitting Diagnosis diarrhea DS: Discharge Diagnosis Discharge Diagnosis (1) Acute on chronic kidney failure: Code(s): N17.9 - Acute kidney failure, unspecified; N18.9 - Chronic kidney disease, unspecified Status: Acute Assessment and Plan: likely secondary to dehydration from nausea, vomiting, diarrhea * Initial blood pressure on admission 84/59. Blood pressures have improved with IV fluids. DIAMOND is also responding with IV fluids. * CKD history-Cr was running 1.5 last year in November 2022, then on 12/03/2023 Cr 2.0. * Cr today (04/09) 2.60, BUN 56 * Received 1.5 L of NS in the ED, Continue LR at 100 ml per hour * CO2 19 on labs, sodium bicarb tablet 325 mg added b.i.d. * renal ultrasound shows mild dilatation of the left renal pelvis, otherwise normal * Holding nephrotoxic mediations--lisinopril on hold * Renally dose medications * Nephrology consult is appreciated (2) Gastroenteritis: Code(s): K52.9 - Noninfective gastroenteritis and colitis, unspecified Status: Acute Assessment and Plan: Reports of nausea, vomiting, and diarrhea * initial white count was 14.0 but has resolved with IVF * CT abdomen and pelvis Shows umbilical hernia, supraumbilical ventral hernias, and left inguinal hernia with fat. Fundoplication present. * C diff and stool sample ordered but not sent as he has not had diarrhea since admission * conservative treatment (3) Dehydration: Code(s): E86.0 - Dehydration Status: Acute Assessment and Plan: secondary to 2 (4) Essential hypertension: Code(s): I10 - Essential (primary) hypertension Status: Acute Assessment and Plan: patient is normally on amlodipine, metoprolol, and lisinopril * hypotensive on admission 80s over 40s * blood pressures have return to baseline * resume amlodipine and metoprolol today * continue to hold lisinopril for DIAMOND (5) Prediabetes: Code(s): R73.03 - Prediabetes Status: Acute Assessment and Plan: last hemoglobin A1c in November of this year was 6% * fasting glucose on BMP was 115 * monitor glucose on labs (6) Gastroesophageal reflux disease: Code(s): K21.9 - Gastro-esophageal reflux disease without esophagitis Status: Acute Assessment and Plan: status post Bettye, on Protonix * resume home medication * stable (7) Benign prostatic hyperplasia: Code(s): N40.0 - Benign prostatic hyperplasia without lower urinary tract symptoms Status: Acute Assessment and Plan: on Flomax, resume medication Plan Feeding:heart healthy diet Analgesia:Tylenol Thromboembolic prophylaxis: SCDs Ulcer prophylaxis: PPI Glycemic control: monitor on BMP Bowel regimen: MiraLax p.r.n. Lines: PIV Antibiotics: not applicable Disposition: PT OT consult for weakness, anticipate patient returning home Advance Care Plan I have confirmed that the patient's Advanced Care Plan is present, code status is documented, or surrogate decision maker is listed in patient medical record.: Yes Medication Reconciliation I have utilized all available resources to obtain, update and review the patients current medications (includes all prescriptions, OTC, herbals, cannabis, and nutritional supplements).: Yes DS: Summary Hospital Course Reason for hospitalization: dehydration, DIAMOND Hospital Course: This is a 78 year old gentleman who present
--- NOTE | 2024-04-11 14:58 | PM.DS ---
DS: Admitting Diagnosis Discharge Date 04/10/24 Admitting Diagnosis diarrhea DS: Discharge Diagnosis Discharge Diagnosis (1) Acute on chronic kidney failure: Code(s): N17.9 - Acute kidney failure, unspecified; N18.9 - Chronic kidney disease, unspecified Status: Acute Assessment and Plan: likely secondary to dehydration from nausea, vomiting, diarrhea Initial blood pressure on admission 84/59. Blood pressures have improved with IV fluids. DIAMOND is also responding with IV fluids. CKD history-Cr was running 1.5 last year in November 2022, then on 12/03/2023 Cr 2.0. Cr today (04/09) 2.60, BUN 56 Received 1.5 L of NS in the ED, Continue LR at 100 ml per hour CO2 19 on labs, sodium bicarb tablet 325 mg added b.i.d. renal ultrasound shows mild dilatation of the left renal pelvis, otherwise normal Holding nephrotoxic mediations--lisinopril on hold Renally dose medications Nephrology consult is appreciated (2) Gastroenteritis: Code(s): K52.9 - Noninfective gastroenteritis and colitis, unspecified Status: Acute Assessment and Plan: Reports of nausea, vomiting, and diarrhea initial white count was 14.0 but has resolved with IVF CT abdomen and pelvis Shows umbilical hernia, supraumbilical ventral hernias, and left inguinal hernia with fat. Fundoplication present. C diff and stool sample ordered but not sent as he has not had diarrhea since admission conservative treatment (3) Dehydration: Code(s): E86.0 - Dehydration Status: Acute Assessment and Plan: secondary to 2 (4) Essential hypertension: Code(s): I10 - Essential (primary) hypertension Status: Acute Assessment and Plan: patient is normally on amlodipine, metoprolol, and lisinopril hypotensive on admission 80s over 40s blood pressures have return to baseline resume amlodipine and metoprolol today continue to hold lisinopril for DIAMOND (5) Prediabetes: Code(s): R73.03 - Prediabetes Status: Acute Assessment and Plan: last hemoglobin A1c in November of this year was 6% fasting glucose on BMP was 115 monitor glucose on labs (6) Gastroesophageal reflux disease: Code(s): K21.9 - Gastro-esophageal reflux disease without esophagitis Status: Acute Assessment and Plan: status post Bettye, on Protonix resume home medication stable (7) Benign prostatic hyperplasia: Code(s): N40.0 - Benign prostatic hyperplasia without lower urinary tract symptoms Status: Acute Assessment and Plan: on Flomax, resume medication Plan Feeding:heart healthy diet Analgesia:Tylenol Thromboembolic prophylaxis: SCDs Ulcer prophylaxis: PPI Glycemic control: monitor on BMP Bowel regimen: MiraLax p.r.n. Lines: PIV Antibiotics: not applicable Disposition: PT OT consult for weakness, anticipate patient returning home Advance Care Plan I have confirmed that the patient's Advanced Care Plan is present, code status is documented, or surrogate decision maker is listed in patient medical record.: Yes Medication Reconciliation I have utilized all available resources to obtain, update and review the patients current medications (includes all prescriptions, OTC, herbals, cannabis, and nutritional supplements).: Yes DS: Summary Hospital Course Reason for hospitalization: dehydration, DIAMOND Hospital Course: This is a 78 year old gentleman who presented with GI complaints of nausea, vomiting, and diarrhea. Found to be dehydrated. CT of abdomen and pelvis was benign for acute issue. It did show umbilical hernia, supraumbilical ventral hernia, and left inguinal hernia. He was found to have DIAMOND on CKD and therefore was admitted for IV fluid hydration. His diarrhea resolved on its own and was felt to be related to possible viral gastroenteritis. His renal function improved with IV hydration and he was discharged in stable
== END 2024-04-10 10:38 | disposition home or self-care (01) | DRG 641 ==
LOC: ANHED 10:53 → ANH2MED 15:30
PROVIDERS: Emergency Medicine; Physician Assistant; Admitting Provider Internal Medicine; Emergency Provider Physician Assistant; PCP Internal Medicine; Visit Provider Nurse Practitioner Acute Care
DX: E86.0 Dehydration (principal); N17.9 Acute kidney failure, unspecified; K52.9 Noninfective gastroenteritis and colitis, unspecified; E78.5 Hyperlipidemia, unspecified; I12.9 Hypertensive chronic kidney disease with stage 1 through stage 4 chronic kidney disease, or unspecified chronic kidney disease; I25.10 Atherosclerotic heart disease of native coronary artery without angina pectoris; K43.9 Ventral hernia without obstruction or gangrene; K21.9 Gastro-esophageal reflux disease without esophagitis; N40.0 Benign prostatic hyperplasia without lower urinary tract symptoms; N18.32 Chronic kidney disease, stage 3b; R73.03 Prediabetes; Z95.5 Presence of coronary angioplasty implant and graft; Z79.82 Long term (current) use of aspirin; Z87.891 Personal history of nicotine dependence
CPT/HCPCS: 36415; 74176; 76775; 80048; 80053; 80069; 81001; 82550; 82803; 83690; 83735; 85025; 85027; 85055; 86140; 96361; 96374; 99285; A9270; G0378; J2405; J7030; J7040; J7120

== ENCOUNTER 2024-06-18 08:35 | Outpatient (CLI) | payer MEDICARE, SELFPAY ==
[2024-06-18 09:25] LABS: Hemoglobin A1C 5.8 % (<5.7)
[2024-06-18 09:32] LABS: Alanine Aminotransferase 14 U/L (6-50); Albumin Level 4.5 g/dL (3.5-5.1); Alkaline Phosphatase 49 U/L (38-126); Anion Gap 8 mmol/L (4-12); Aspartate Amino Transferase 27 U/L (17-59); Bilirubin,Total 0.6 mg/dL (0.2-1.3); Blood Urea Nitrogen 32 mg/dL (9-20); Calcium 9.1 mg/dL (8.4-10.2); Carbon Dioxide 32 mmol/L (22-30); Chloride 100 mmol/L (98-107); Cholesterol 151 mg/dL (0-200); Estimated Glomerular Filt Rate 42; Glucose 108 mg/dL (65-110); HDL Direct 65 mg/dL; Potassium 4.8 mmol/L (3.4-5.0); Sodium 140 mmol/L (137-145); Triglycerides 78 mg/dL (<150)
[2024-06-18 09:44] LABS: LDL Cholesterol Direct 66 mg/dL
[2024-06-18 10:03] LABS: Vitamin D 25 Hydroxy 57.4 ng/mL
== END 2024-06-18 08:36 | disposition home or self-care (01) ==
LOC: ANHLAB 08:42
PROVIDERS: PCP Internal Medicine; Visit Provider Internal Medicine
DX: E55.9 Vitamin D deficiency, unspecified (principal); E78.5 Hyperlipidemia, unspecified; I10 Essential (primary) hypertension; R73.9 Hyperglycemia, unspecified
CPT/HCPCS: 36415; 80053; 80061; 82306; 83036

== ENCOUNTER 2024-11-28 09:40 | Outpatient (CLI) | payer MEDICARE, SELFPAY ==
--- OUTSIDE RECORDS SUMMARY | 2024-11-28 09:44 | XMS_ITS | Encounter Summary ---
Author Organization [facility] Healthcare Address [address] [place] [address] Care Team Providers Care Livestock Farmers Name Role Phone Kemal Hampton MD Primary Care Provider [phone] Dionna Capps RN Unavailable [phone] Cesar Patrick DO Primary Care Provider [phone] Encounter Details Date Type Department Care Team (Late st Contact Info) Description 09/22/2018 Documentation [facility] Surgeon [address] [place] [address] Ruthy Dacosta MD [address] [facility] [address] [place] [address] Social History Tobacco Use Types Packs/Day Years Used Date Smoking Tobacco: Former Smokeless Tobacco: Never Alcohol Use Standard Drinks/Week Comments No 0 (1 standard drink = 0.6 oz pur e alcohol) Sex and Gender Information Value Date Recorded Sex Assigned at Not on file 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 Gender Identity Male 03/30/2020 8:32 AM CDT Sexual Orientation Not on file documented as of this encounter Plan of Treatment Not on file documented as of this encounter Visit Diagnoses Not on filedocumented in this encounter Care Teams Livestock Farmers Relationship Specialty Start Date End Date Kemal Hampton MD [address] [facility] [address] [place] [address] PCP - General Internal Medicine 09/20/17 03/10/24 Cesar Patrick DO [address] [facility] [address] [place] [address] PCP - General Internal Medicine 03/11/24 Dionna Capps RN [address] [facility] [address] [place] [address] [facility] Outpatient Branch Controller 02/09/22 03/09/22 documented as of this encounter
--- OUTSIDE RECORDS SUMMARY | 2024-11-28 09:44 | XMS_ITS | Clinical Summary ---
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 Name Role Phone Unavailable Primary Care Provider Unavailabl e Social History Tobacco Use Types Packs/Day Years Used Date Smoking Tobacco: Never Assessed Sex and Gender Information Value Date Recorded Sex Assigned at Not on file Legal Sex Male 6:13 PM CDT Gender Identity Not on file Sexual Orientation Not on file Plan of Treatment Health Maintenance Due Date Last Done Comments Hepatitis C 1963 Annual Medicare Wellness Visit 2011 Pneumococcal Vaccine: 65+ Years (1 of 1 - PCV) 2011 Zoster Vaccines (2 of 3) 08/20/2013 06/25/2013 RSV Immunization or 60+ Years (1 - 1-dose 75+ series) 2021 COVID-19 Vaccine (3 - 2023-2 5 season) 2024 01/05/2021, 12/08/2020 Influenza Adult (#1) 2024 DTaP, Tdap and Td Vaccines ( 2 - Td or Tdap) 05/06/2029 05/06/2019 Meningococcal B Vaccine Aged Out No l onger eligible based on patient's age to complete this topic Meningococcal Vaccine Aged Out No oriana inge eligible based on patient's age to complete this topic RSV Immunizations Under 20 Months Aged Out No longer eligible b ased on patient's age to complete this topic Insurance MEDICARE [facility]
--- OUTSIDE RECORDS SUMMARY | 2024-11-28 09:44 | XMS_ITS | Clinical Summary ---
Author Organization [facility] Address [address] [place] [address] Care Team Providers Care Diesel Tractor Engine Mechanic Name Role Phone Cesar Patrick DO Primary Care Provider [phone] Allergies No known active allergies Medications metoprolol (LOPRESSOR) 50 mg tablet take 1 tablet (50MG) by oral route 2 times every day with meals 0 3 Active Additional Information Patient taking differently:50 mgoral 2 times daily after meals (bkfst, dinner), Informant: Self, Reported on 08/27/2024 lisinopril (PRINIVIL,ZESTR MS) 40 mg tablet take 1 tablet by oral route every day 0 0 5 Active Additional Information Patient taking differently:40 mgoral Daily (early AM), Informant: Self, Reported on 08/27/[address] (PROTONIX) 40 mg EC tablet Take 1 tablet (40 mg total) by mouth daily. 8 Active Additional Information Patient taking differently:40 mg oralDaily (early AM), Informant: Self, Reported on 08/27/2024 tamsulosin (FLOMAX) 0.4 mg extended release capsule Take 1 capsule (0.4 mg total) by mouth daily with dinner. 8 Active ferrous sulfate 325 mg (65 mg of elemental iron) tabletIndicatio ns:Iron Deficiency Anemia Take 1 tablet (325 mg total) by mouth as needed 2-3 tablets per week Active acetaminophen (TYLENOL) 325 mg tabletIndicatio ns:Pain Take 2 tablets (650 mg total) by mouth every 6 (six) hours 100 tablet 2 Active aspirin 81 mg enteric coated tablet Take 1 tablet (81 mg total) by mouth daily Active sertraline (ZOLOFT) 25 mg tablet Take 1 tablet (25 mg total) by mouth daily Active amoxicillin 500 mg tablet 2 Active amLODIPine (NORVASC) 2.5 mg tablet Take 1 tablet (2.5 mg total) by mouth daily 4 Active terbinafine (LamiSIL) 250 mg tablet Take 1 tablet (250 mg total) by mouth daily 4 Active simvastatin (ZOCOR) 20 mg tablet TAKE 1 TABLET BY MOUTH NIGHTLY 90 tablet 1 4 Active Active Problems Problem Noted Date Diagnosed Date 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 Right hand weakness 07/17/2022 Shoulder arthritis 02/06/2022 Rotator cuff arthropathy of right shoulder 01/11 Overview (01/11/2022): Added automatically from request for surgery [id number] 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 SBO (small bowel obstruction) (CMS/HCC) 09/23/20 18 Overview (09/23/2018): Added automatically from request for surgery [id number] Large hiatal hernia 09/23/2018 Overview (09/23/2018): Added automatically from request for surgery [id number] Hiatal hernia 03/26/2018 Assessment & Plan (03/27/2018 7:50 AM CDT): Patient with large hiatal hernia with the stomach located entirely in the right hemithorax. 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 Will plan to vent the G-tube and continue the patient on sips today and remove garcia catheter Coronary artery disease invo lving [place] coronary artery of [place] heart without angina pectoris 09/20/2017 03/26/2018 Immunizations Name Administration Dates Next Due Tdap 05/06/2019 ZOSTER LIVE 06/25/2013 Surgical History Surgery Date Site/Laterality Comments HIATAL HERNIA REPAIR HERNIA REPAIR JUVE FUNDOPLICATION 10/15/2021 - 10/14/2022 REVERSE TOTAL SHOULDER ARTHROPLASTY 10/15/2021 - 10/14/2022 JUVE FUNDOPLICATION 10/15/2016 - 10/14/2017 Redo of original surgery CARDIAC CATHETERIZATION 10/15/2000 - 10/14/2001 Shunt placement CARDIAC SURGERY 10/15/2017 - 10/14/2018 SMALL INTESTINE SURGERY 2018 Medical History Medical History Date Comments Coronary artery disease Hx of fdc use of blood thinners Hiatal hernia Weight loss Hypertension Cancer (CMS/HCC) (HCC) Squamous cell carcinoma Gastric reflux Family History Medical History Relation Name Comments Cancer Mother Heart disease Mother Cancer Sister Relation Name Status Comments Father PARKINSON'S Mother Sister Social History Tobacco Use Types Packs/Day Years Used Date Smoking Tobacco: Former Cigarettes 1 56.6 0 01/25/1963 - 09/14/2019 Smokeless Tobacco: Never Tobacco Cessation:Counseling Given: Not Answered Comments:Quit smoking in 1998 Alcohol Use Standard Drinks/Week Comments No 0 (1 standard drink = 0.6 oz pur e alcohol) Social Connection and Isolat ion Panel [NHANES] Answer Date Recorded In a typical week, how many times do you talk on the phone with family, friends, or neighbors? More than three times a week 02/10/2022 How often do you get togethe r with friends or relatives? More than three times a week 02/10/2022 How often do you attend chur ch or cheondoism services? Never 02/10/2022 Do you belong to any clubs o r organizations such as sabianist groups, unions, fraternal or athletic groups, or school groups? Yes 02/10/2022 How often do you attend meet ings of the clubs or organizations you belong to? More than 4 times per year 02/10/2022 Are you , , di vorced, , never , or living with a partner? 02/10/2022 AUDIT-C Answer Date Recorded Q1: How often do you have a drink containing alc ohol? 2-3 times a week 07/17/2022 Average Number of Drinks Not on file 022 Q3: How often do you have si x or more drinks on one occasion? Never 07/17/2022 Overall Financial Resource Strain (CARDIA) Answe r Date Recorded How hard is it for you to pa y for the very basics like food, housing, medical care, and heating? Not hard at all 02/10/2022 Hunger Vital Sign Answer Date Recorded Within the past 12 months, y ou worried that your food would run out before you got the money to buy more. Never true 02/11/20 22 Within the past 12 months, t he food you bought just didn't last and you didn't have money to get more. Never true 02/10/2022 PRAPARE - Transportation Answer Date Re corded In the past 12 months, has l ack of transportation kept you from medical appointments or from getting medications? No 01/14 In the past 12 months, has l ack of transportation kept you from meetings, work, or from getting things needed for daily living? No 02/10/2022 Housing Stability Vital Sign Answer Rodriguez e Recorded In the last 12 months, was t here a time when you were not able to pay the mortgage or rent on time? No 02/10/2022 In the last 12 months, how many places have you lived? 1 02/10/2022 In the last 12 months, was t here a time when you did not have a steady place to sleep or slept in a skilled nursing (including now)? 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 Not on file Not on file Not on file Obstetrics History Last Filed Vital Signs Vital Sign Reading Time Taken Comments Blood Pressure 181/99 08/27/2024 1:15 PM BUSINESS STRATEGIST Pulse 60 08/27/2024 1:15 PM BUSINESS STRATEGIST Temperature 36.8 C (98.3 F) 08/27/2024 1:15 PM BUSINESS STRATEGIST Respiratory Rate 18 08/27/2024 1:15 PM BUSINESS STRATEGIST Oxygen Saturation 99% 08/27/2024 1:15 PM BUSINESS STRATEGIST Inhaled Oxygen Concentration - - Weight 68.9 kg (152 lb) 08/27/2024 1:15 PM BUSINESS STRATEGIST Height 177.8 cm (5' 10 ) 08/27/2024 1:15 PM BUSINESS STRATEGIST Body Mass Index 21.81 08/27/2024 1:15 PM BUSINESS STRATEGIST Plan of Treatment Health Maintenance Due Date Last Done Comments Depression Screening 1945 Hepatitis C Screening 1945 Hepatitis B Screening 1964 Lung Cancer Screening 1996 Pneumococcal vaccine 65+ (1 of 1 - PCV) 2011 Well Visit 65+ 2011 Zoster Vaccine (2 of 3) 08/20/2013 06/25/2013 Fall Risk Assessment 02/08/2023 02/08/2022 Covid-19 Vaccine (3 - season) 2024, 12/08/2020 Influenza Vaccine (#1) 2024 DTaP/Tdap/Td Vaccine (2 - Td or Tdap) 05/06/2029 Abdominal Aortic Aneurysm (AAA) Screen Completed Medical Devices Implanted Type Area Commercial Teller Device Identifier Shelf Expiration Date Model / Serial / Lot [employer] 14mm 130mm Shoulder Stem Humeral Trabecular Metal Tivanium [id number] - S0 - [id number] Implanted:Qty : 1 on 02/06/2022 by Mark Aguila MD at [facility] Other - see comments Right: Shoulder [employer] [id number] 12/28/2031 [id number] / 0 / [id number] [employer] [id number] Base Plate 26mm Tm Reverse 20m - S0 - [id number] Implanted:Qty : 1 on 02/06/2022 by Mark Aguila MD at [facility] Other - see comments Right: Shoulder [employer] [id number] 09/13/2029 [id number] / 0 / [id number] [employer] [id number] Glenosphere Tm Reverse 36mm Centric - S0 - [id number] Implanted:Qty : 1 on 02/06/2022 by Mark Aguila MD at [facility] Other - see comments Right: Shoulder [employer] [id number] 07/31/2030 [id number] / 0 / [id number] [employer] Ncb Anatomical Shoulder 4.5mm 42mm Inverse Reverse Lock Self Tap 23.042 - S0 - [id number] Implanted:Qty : 1 on 02/06/2022 by Mark Aguila MD at [facility] Screw Right: Shoulder [employer] [id number] 11/02/2026.87834.042 / 0 / [id number] [employer] Ncb Anatomical Shoulder 4.5mm 48mm Inverse Reverse Lock Self Tap 23.048 - S0 - [id number] Implanted:Qty : 1 on 02/06/2022 by Mark Aguila MD at [facility] Screw Right: Shoulder [employer] [id number] 08/25/2026.03867.048 / 0 / [id number] [employer] 36mm H+3mm Reverse Humerus 7d Standard Liner Shoulder Trabecular [id number] - [id number] Implanted:Qty : 1 on 02/06/2022 by Mark Aguila MD at [facility] [employer] [id number] 01/11/2027 [id number] / / [id number] Explanted Type Area Commercial Teller Device Identifier Shelf Expiration Date Model / Serial / Lot [employer] Fiona 3/32in 9in 2 Trocar Pin Fixation Nonsterile [id number] - S0 - [id number] Explanted:Qty: 1 on 02/06/2022 by Mark Aguila MD at [facility] Other - see comments Right: Shoulder [employer] [id number] / 0 / 0 Procedures Procedure Name Priority Date/Time Associated Diagnosis Comments CT CHEST ABDOMEN PELVIS W CONTRAST ED 09/23/2018 9:15 AM BUSINESS STRATEGIST from Last 3 Months or Most Recently Relevant to Health Maintenance Results * CT Chest Abdomen Pelvis W Contrast (09/23/2018 9:15 AM BUSINESS STRATEGIST) Anatomical Region Laterality Modality Body N/A Computed Tomogra phy 09/23/2018 9:50 AM BUSINESS STRATEGIST Impressions 09/23/2018 9:50 AM BUSINESS STRATEGIST 1. 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 2. Bibasilar atelectasis. The Critical results were discussed with Maite Sams by Dr. Bermudez on 09/23/2018 at 0 935 Electronically signed by: Quentin Bermudez M.D., MPH Narrative 09/23/2018 9:50 AM BUSINESS STRATEGIST EXAMINATION: Computed tomographic examination chest, abdomen and pelvis was performed with intravenous contrast. TECHNIQUE: Computed Tomographic examination of the chest, and pelvis was performed with intravenous contrast. 100 ml of Optiray 350 was administered for the examination. HISTORY: Hiatus hernia repair multiple times. Now presents from outside hospital as a transfer. COMPARISON:10/03/2018 and 03/25/2018 FINDINGS: CHEST: In the interval, there is been development of a large hiatus hernia containing loops of small bowel herniated into the right chest and to a lesser degree the left aspect of the mediastinum with 2 transition points at the level of the diaphragmatic hiatus compatible with a closed loop equivalent of a small bowel obstruction. In addition, there is compression and obliteration of the brain superior mesenteric vein as it traverses the diaphragmatic hiatus likely resulting in a component of venous outlet obstruction and possible evolving venous infarct. There is currently no pneumatosis although there is edema throughout the mesentery in the chest supporting mesenteric venous outlet obstruction. There is bibasilar atelectasis. There is no pulmonary nodules or masses. There is no focal pneumonic consolidation. Severe three-vessel coronary artery calcification is present. There is upper scrota disease of the aorta. There is no pericardial thickening or pericardial effusion. No large central pulmonary emboli present. Abdomen and pelvis: The liver, spleen, adrenal glands, kidneys and pancreas are unchanged. The stomach has been pexied to the anterior abdominal wall and has not herniated through the diaphragmatic hiatus. There has been migration of the descending colon into the left upper quadrant. No colonic obstruction is currently seen. There are multiple dilated loops of small bowel that have a transition point at the level of the diaphragmatic hiatus again resulting in a closed loop type of obstruction. There is no free fluid. There is an enlarged prostate gland. A small inguinal hernia is present. There is a ventral hernia containing fat. Osseous windows demonstrate an old compression fracture of the T12 vertebral body. Procedure Note Quentin Bermudez MD - 09/23/2018 EXAMINATION: Computed tomographic examination chest, abdomen and pelvis was performed with intravenous contrast. TECHNIQUE: Computed Tomographic examination of the chest, and pelvis was performed with intravenous contrast. 100 ml of Optiray 350 was administered for the examination. HISTORY: Hiatus hernia repair multiple times. Now presents from outside hospital as a transfer. COMPARISON:10/03/2018 and 03/25/2018 FINDINGS: CHEST: In the interval, there is been development of a large hiatus hernia containing loops of small bowel herniated into the right chest and to a lesser degree the left aspect of the mediastinum with 2 transition points at the level of the diaphragmatic hiatus compatible with a closed loop equivalent of a small bowel obstruction. In addition, there is compression and obliteration of the brain superior mesenteric vein as it traverses the diaphragmatic hiatus likely resulting in a component of venous outlet obstruction and possible evolving venous infarct. There is currently no pneumatosis although there is edema throughout the mesentery in the chest supporting mesenteric venous outlet obstruction. There is bibasilar atelectasis. There is no pulmonary nodules or masses. There is no focal pneumonic consolidation. Severe three-vessel coronary artery calcification is present. There is upper scrota disease of the aorta. There is no pericardial thickening or pericardial effusion. No large central pulmonary emboli present. Abdomen and pelvis: The liver, spleen, adrenal glands, kidneys and pancreas are unchanged. The stomach has been pexied to the anterior abdominal wall and has not herniated through the diaphragmatic hiatus. There has been migration of the descending colon into the left upper quadrant. No colonic obstruction is currently seen. There are multiple dilated loops of small bowel that have a transition point at the level of the diaphragmatic hiatus again resulting in a closed loop type of obstruction. There is no free fluid. There is an enlarged prostate gland. A small inguinal hernia is present. There is a ventral hernia containing fat. Osseous windows demonstrate an old compression fracture of the T12 vertebral body. IMPRESSION: 1. 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 2. Bibasilar atelectasis. The Critical results were discussed with Maite Sams by Dr. 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
--- OUTSIDE RECORDS SUMMARY | 2024-11-28 09:44 | XMS_ITS | Continuity of Care Document ---
Author Organization [facility] Address [address] [place] [address] [address] [place] [address] Phone Care Team Providers Care Rn Or Lpn Name Role Phone Haji OD, [place] Unavailable Unavailable Procedures Procedure Date Eye Exam Established Pt Advance Directives Directive Yes / No Effective Date File Name No Information Encounters Encounter Description Practice Location Reason(s) For Visit Diagnoses Date Provider Providers Copied on Encounter [facility], [address], [place], [place], [id number], [place] tel:[phone] [facility] [place] No Information 1-200 9 Haji OD [place]. [address] [place] , [address], [place], [place], [facility], [place]. tel:[phone] Referring Provider: [place] Stallings, [address], [place], [facility]. tel:[phone] Family History Family Member Type Diagnosis Age At Onset No Information Payers Payer name Insurance type Covered libertarian ID Authoriza tion(s) No Information Social History Type Description Quantity Date Captured Comments Sex Male Smoking Status No Information Chief Complaint And Reason For Visit No Information Reason For Referral Reason For Referral No Information History Of Present Illness Encounter Date Complaint History Of Prese nt Illness No Information Functional Status Date Functional Assessmen t No Information Instructions Date Instruction Additional Infor mation No Information Assessments Type Assessment Date No Information Patient Care Teams Name Effective Dates (start - stop) Status Members No Information
--- OUTSIDE RECORDS SUMMARY | 2024-11-28 09:44 | XMS_ITS | Referral Summary ---
Author Organization [facility] Address [address] [place] [address] Care Team Providers Care Aircraft Riveter Name Role Phone Cesar Patrick Primary Care Provider [phone] Allergies No known active allergies Medications metoprolol (LOPRESSOR) 50 mg tablet take 1 tablet (50MG) by oral route 2 times every day with meals 0 3 Active Additional Information Patient taking differently:50 mgoral 2 times daily after meals (bkfst, dinner), Informant: Self, Reported on 08/27/2024 lisinopril (PRINIVIL,ZESTR UT) 40 mg tablet take 1 tablet by [...] (01/11/2022): Added automatically from request for surgery [id number] 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 SBO (small bowel obstruction) (CMS/HCC) 09/23/20 18 Overview (09/23/2018): Added automatically from request for surgery [id number] Large hiatal hernia 09/23/2018 Overview (09/23/2018): Added automatically from request for surgery [id number] Hiatal hernia 03/26/2018 Assessment & Plan (03/27/2018 [...] garcia catheter Coronary artery disease invo lving [place] coronary artery of [place] heart without angina pectoris 09/20/2017 03/26/2018 Immunizations Name Administration Dates Next Due Tdap 05/06/2019 ZOSTER LIVE 06/25/2013 Social History Tobacco Use Types Packs/Day Years [...] 02/10/2022 How often do you attend chur AVST or evangelical services? Never 02/10/2022 Do you belong to any clubs o r organizations such as pentecostal groups, unions, fraternal or athletic groups, or [...] place to sleep or slept in a retirement (including now)? 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 Not on file Not on file Not on file Last Filed Vital Signs Vital Sign Reading Time Taken Comments Blood Pressure 181/99 08/27/2024 1:15 PM SECURITY GUARD Pulse 60 08/27/2024 1:15 PM SECURITY GUARD Temperature 36.8 C (98.3 F) 08/27/2024 1:15 PM SECURITY GUARD Respiratory Rate 18 08/27/2024 1:15 PM SECURITY GUARD Oxygen Saturation 99% 08/27/2024 1:15 PM SECURITY GUARD Inhaled Oxygen Concentration - - Weight 68.9 kg (152 lb) 08/27/2024 1:15 PM SECURITY GUARD Height 177.8 cm (5' 10 ) 08/27/2024 1:15 PM SECURITY GUARD Body Mass Index 21.81 08/27/2024 1:15 PM SECURITY GUARD Plan of Treatment Not on file Medical Devices Implanted Type Area Focuser Device Identifier Shelf Expiration Date Model / Serial / Lot [employer] 14mm 130mm Shoulder Stem Humeral Trabecular Metal Tivanium [id number] - S0 - [id number] Implanted:Qty : 1 on 02/06/2022 by Mark Aguila MD at [facility] Other - see comments Right: Shoulder [employer] [id number] 12/28/2031 [id number] / 0 / [id number] [employer] [id number] Base Plate 26mm Tm Reverse 20m - S0 - [id number] Implanted:Qty : 1 on 02/06/2022 by Mark Aguila MD at [facility] Other - see comments Right: Shoulder [employer] [id number] 09/13/2029 [id number] / 0 / [id number] [employer] [id number] Glenosphere Tm Reverse 36mm Centric - S0 - [id number] Implanted:Qty : 1 on 02/06/2022 by Mark Aguila MD at [facility] Other - see comments Right: Shoulder [employer] [id number] 07/31/2030 [id number] / 0 / [id number] [employer] Ncb Anatomical Shoulder 4.5mm 42mm Inverse Reverse Lock Self Tap 042 - S0 - [id number] Implanted:Qty : 1 on 02/06/2022 by Mark Aguila MD at [facility] Screw Right: Shoulder [employer] [id number] 11/02/2026042 / 0 / [id number] [employer] Ncb Anatomical Shoulder 4.5mm 48mm Inverse Reverse Lock Self Tap 048 - S0 - [id number] Implanted:Qty : 1 on 02/06/2022 by Mark Aguila MD at [facility] Screw Right: Shoulder [employer] [id number] 08/25/2026.66031.048 / 0 / [id number] [employer] 36mm H+3mm Reverse Humerus 7d Standard Liner Shoulder Trabecular [id number] - [id number] Implanted:Qty : 1 on 02/06/2022 by Mark Aguila MD at [facility] [employer] [id number] 01/11/2027 [id number] / / [id number] Explanted Type Area Focuser Device Identifier Shelf Expiration Date Model / Serial / Lot [employer] Steinmann 3/32in 9in 2 Trocar Pin Fixation Nonsterile [id number] - S0 - [id number] Explanted:Qty: 1 on 02/06/2022 by Mark Aguila MD at [facility] Other - see comments Right: Shoulder [employer] [id number] / 0 / 0 Procedures Procedure Name Priority Date/Time Associated Diagnosis Comments CT CHEST ABDOMEN PELVIS W CONTRAST ED 09/23/2018 9:15 AM SECURITY GUARD from Last 3 Months or Most Recently Relevant to Health Maintenance Results * CT Chest Abdomen Pelvis W Contrast (09/23/2018 9:15 AM SECURITY GUARD) Anatomical Region Laterality Modality Body N/A Computed Tomogra phy 09/23/2018 9:50 AM SECURITY GUARD Impressions 09/23/2018 9:50 AM SECURITY GUARD 1. 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 2. Bibasilar atelectasis. The Critical results were discussed with Maite Sams by Dr. Bermudez on 09/23/2018 at 0 935 Electronically signed by: Quentin Bermudez M.D., MPH Narrative 09/23/2018 9:50 AM SECURITY GUARD EXAMINATION: Computed tomographic examination chest, abdomen and [...] Quentin Bermudez M.D., MPH David Edge MD IMG CT PROCEDURES Final R esult from Last 3 Months or Most Recently Relevant to Health Maintenance Insurance MEDICARE [facility] [place] [address] MEDICARE [facility] [place]IC[place] [address] [place] [address] MEDICARE [facility] Advance Directives For more information, please contact: [phone] Documents on File Type Date Recorded Patient Chute Tender Expl anation ADVANCE DIRECTIVE 03/09/2022 1:36 PM Power of [employer] * Full Code (Latest Code Status on File) Date Activated Date Inactivated Comments 02/06/2022 4:07 PM 02/08/2022 2:15 PM * Full Code Date Activated Date Inactivated Comments 09/23/2018 6:17 PM 10/01/2018 7:04 PM * Full Code Date Activated Date Inactivated Comments 03/26/2018 3:47 AM 03/30/2018 7:10 PM Care Teams Aircraft Riveter Relationship Specialty Start Date End Date Cesar Patrick DO PCP - General Internal Medicine 03/11/24
[2024-11-28 10:21] LABS: Anion Gap 8 mmol/L (4-12); Blood Urea Nitrogen 31 mg/dL (9-20); Calcium 9.4 mg/dL (8.4-10.2); Carbon Dioxide 32 mmol/L (22-30); Chloride 102 mmol/L (98-107); Estimated Glomerular Filt Rate 46; Glucose 104 mg/dL (65-110); Potassium 4.2 mmol/L (3.4-5.0); Sodium 142 mmol/L (137-145)
== END 2024-11-28 09:41 | disposition home or self-care (01) ==
LOC: ANHLAB 09:41
PROVIDERS: PCP Internal Medicine; Visit Provider Internal Medicine
DX: I12.9 Hypertensive chronic kidney disease with stage 1 through stage 4 chronic kidney disease, or unspecified chronic kidney disease (principal); N18.30 Chronic kidney disease, stage 3 unspecified
CPT/HCPCS: 36415; 80048